=== PATIENT | male | born 1945 | race Two or more races ===

== ENCOUNTER 2024-03-21 11:55 | Outpatient (REF) | payer MEDICARE, SELFPAY ==
[2024-03-21 12:51] LABS: Anion Gap 13 (12-20); Blood Urea Nitrogen 58 mg/dL (9-16); Calcium 9.7 mg/dL (8.4-10.2); Carbon Dioxide 23 mmol/L (22-29); Chloride 113 mmol/L (96-108); Estimated Glomerular Filt Rate 18; Glucose Random 104 mg/dL (60-115); Potassium 4.9 mmol/L (3.3-5.1); Sodium 144 mmol/L (135-145)
[2024-03-21 12:54] LABS: Rheumatoid Factor < 13.0 IU/mL (<15.0)
[2024-03-21 13:05] LABS: Erythrocyte Sedimentation Rate 33 MM/HR (0-15)
[2024-03-23 03:18] LABS: Lyme Abs Screen <0.90 index
== END 2024-03-21 11:56 | disposition home or self-care (01) ==
LOC: HO.LAB 11:55
PROVIDERS: PCP Internal Medicine; Visit Provider Psychiatry & Neurology Neurology
DX: G95.20 Unspecified cord compression (principal)
CPT/HCPCS: 36415; 80048; 85652; 86431; 86617; 86618